=== PATIENT | male | born 1950 | race Hispanic/Latino ===

== ENCOUNTER 2021-07-18 10:09 | Outpatient (CLI) | payer MEDICARE | END 2021-07-18 10:10 | disposition home or self-care (01) | LOC: NM 10:09 | PROVIDERS: ATTEND Radiology Radiation Oncology | DX: C61 Malignant neoplasm of prostate (principal); M19.90 Unspecified osteoarthritis, unspecified site | CPT/HCPCS: 78306; A9503 ==

== ENCOUNTER 2024-07-18 12:30 | Outpatient (CLI) | payer MEDICARE | END 2024-07-18 12:31 | disposition home or self-care (01) | LOC: PET 12:30 | PROVIDERS: ATTEND Urology | DX: C61 Malignant neoplasm of prostate (principal); J47.9 Bronchiectasis, uncomplicated; S22.069A Unspecified fracture of T7-T8 vertebra, initial encounter for closed fracture | CPT/HCPCS: 78815; A9552; A9595 ==